=== PATIENT | female | born 1940 | race Caucasian/White ===

== ENCOUNTER 2018-07-23 16:17 | Emergency (ER) | payer OTHER ==
--- NOTE | 2018-07-23 17:34 | XRAY Report ---
Reason: pain Procedure Date: 07/23/2018 Accession Number: [id number] / [id number] Procedure: XR - Hip w/Pelvis 2-3V RT CPT Code: FULL RESULT: EXAM: RIGHT HIP AND PELVIS RADIOGRAPHY EXAM DATE: 07/23/2018 05:21 PM. HISTORY: COMPARISONS: None. TECHNIQUE: 3 views. FINDINGS: Bones: No fracture or focal bony lesion. Joints: No evidence of dislocation. There is mild right hip joint space narrowing and marginal osteophyte formation. Similar findings seen on the left. Soft Tissues: No unexpected soft tissue findings. IMPRESSION: 1. No fracture or dislocation. 2. 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 RADIA
--- NOTE | 2018-07-23 17:36 | XRAY Report ---
Reason: SOB Procedure Date: 07/23/2018 Accession Number: [id number] / [id number] Procedure: XR - Chest 2 View X-Ray CPT Code: 23686 FULL RESULT: EXAM: CHEST RADIOGRAPHY EXAM DATE: 07/23/2018 05:21 PM. CLINICAL HISTORY: Dyspnea COMPARISON: None. TECHNIQUE: 2 views. FINDINGS: Lungs/Pleura: No evidence of lobar consolidation or large effusion. There is some reticular opacity with the left lateral lung base which could represent atelectasis or scarring. No pneumothorax. Mediastinum: Mild cardiomegaly. There is thoracic aortic calcification. Other: None. IMPRESSION: 1. There is mild cardiomegaly with thoracic aortic calcification. 2. No evidence of consolidation or effusion. 3. No pneumothorax. RADIA
[2018-07-23] MEDS ORDERED: IPRATROPIUM/ALBUTEROL 3 ML NEB INH STA (19:19)
[2018-07-23 19:50] LABS: BASOPHILS # (AUTO) 0.1 10^3/uL (0.0-0.1); BASOPHILS % (AUTO) 0.8 %; EOSINOPHILS # (AUTO) 0.3 10^3/uL (0.0-0.7); EOSINOPHILS % (AUTO) 2.4 %; HGB - HEMOGLOBIN 14.1 g/dL (12.0-16.0); LYMPHOCYTES # (AUTO) 2.2 10^3/uL (1.5-3.5); LYMPHOCYTES % (AUTO) 18.9 %; MEAN CORPUSCULAR HEMOGLOBIN 33.2 pg (27.0-31.0); MEAN CORPUSCULAR VOLUME 94.8 fL (81.0-99.0); MEAN PLATELET VOLUME 9.9 fL (7.9-10.8); MONOCYTES # (AUTO) 0.7 10^3/uL (0.0-1.0); MONOCYTES % (AUTO) 6.1 %; NEUTROPHILS # (AUTO) 8.5 10^3/uL (1.5-6.6); NEUTROPHILS % (AUTO) 71.8 %; PLT - PLATELET COUNT 233 10^3/uL (130-450); RED BLOOD COUNT 4.24 10^6/uL (4.20-5.40); RED CELL DISTRIBUTION WIDTH 12.7 % (12.0-15.0); WHITE BLOOD COUNT 11.9 x10^3/uL (4.8-10.8)
[2018-07-23 20:08] LABS: ALBUMIN 4.1 g/dL (3.2-5.5); ALBUMIN/GLOBULIN RATIO 1.9 (1.0-2.2); BILIRUBIN,TOTAL 0.8 mg/dL (0.2-1.0); CALCIUM 9.6 mg/dL (8.5-10.3); CREATININE 0.8 mg/dL (0.4-1.0); TOTAL PROTEIN 6.3 g/dL (6.7-8.2)
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
[2018-07-23 21:04] VITALS: BP 151/74
== END 2018-07-23 21:07 | disposition home or self-care (01) ==
LOC: ED 16:17
DX: E11.65 Type 2 diabetes mellitus with hyperglycemia (principal); M25.551 Pain in right hip; R06.00 Dyspnea, unspecified; X01.1XXA Exposure to smoke in uncontrolled fire, not in building or structure, initial encounter
CPT/HCPCS: 36415; 71046; 80053; 83690; 83880; 84484; 85025; 93005; 94640; 99283